=== PATIENT | male | born 1985 | race African-American/Black ===

== ENCOUNTER 2019-02-12 | Emergency (ER) | payer BC ==
[~2019-02-12] VITALS: Ht 193 cm; Wt 88.0 kg
[2019-02-12] MEDS ORDERED: DEXAMETHASONE 10 MG/ML VIAL IM ONE (02:45)
[2019-02-12 03:11] VITALS: BP 137/82
== END 2019-02-12 03:12 | disposition home or self-care (01) ==
LOC: ER
DX: K12.2 Cellulitis and abscess of mouth (principal)
CPT/HCPCS: 96372; 99283; J1100; Z7610